=== PATIENT | female | born 1965 | race Caucasian/White ===

== ENCOUNTER → 2023-03-18 | Outpatient (CLI) | payer SELFPAY ==
--- NOTE | 2023-03-18 09:15 | MRI_ITS ---
STUDY: MRI LEFT KNEE REASON FOR EXAM: Female, 57 years old. Pain under knee cap and side of knee x 2 months. No known injury. TECHNIQUE: Standardized fat and water weighted pulse sequences were obtained in all 3 orthogonal planes. COMPARISON: None. FINDINGS: There is a tear of the posterior medial meniscal root (sagittal PD series 5 images 22-23). 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 Intact medial collateral ligamentous complex (MCL). There is minimal semimembranosus-tibial collateral ligament bursitis (coronal T2 series 7 images 19-21). Intact distal semimembranosus, gracilis and semitendinosus tendons. Normal lateral meniscus. Normal hyaline cartilage of the lateral femorotibial compartment. Normal lateral femoral condyle and tibial plateau. Normal proximal tibiofibular articulation. Normal lateral collateral (fibular) ligament. Normal popliteus tendon. Normal biceps femoris tendon. Normal anterior cruciate ligament (ACL). Normal posterior cruciate ligament (PCL). There is low to moderate grade patellofemoral chondromalacia. Congruent patellofemoral articulation. Normal medial and lateral patellar retinaculum. Normal quadriceps tendon. Normal patellar tendon. Normal Hoffa''s fat pad. There is a small volume joint effusion. There is no popliteal cyst. There is minimal subcutaneous soft tissue edema along the anterior aspect of the knee. MRI/Lower Ext Joint Only (Routine) IMPRESSION: Tear of the posterior medial meniscal root. 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 Minimal semimembranosus-tibial collateral ligament bursitis. Small joint effusion. Electronically Signed: Jose Gil MD at 13:13 EDT ,
== END | disposition home or self-care (01) ==
PROVIDERS: PCP Internal Medicine
DX: S83.92XA Sprain of unspecified site of left knee, initial encounter (principal)
CPT/HCPCS: 73721